=== PATIENT | female | born 1980 | race Caucasian/White ===

== ENCOUNTER 2019-04-22 18:13 | Emergency (ER) | payer MEDICAID ==
[~2019-04-22] VITALS: Ht 157.5 cm; Wt 54.5 kg
[2019-04-22 18:33] VITALS: Ht 157.5 cm; Wt 54.5 kg
[2019-04-22 21:10] VITALS: BP 120/67
== END 2019-04-22 20:54 | disposition home or self-care (01) ==
LOC: D.ER 18:13
DX: G89.18 Other acute postprocedural pain (principal); K08.89 Other specified disorders of teeth and supporting structures; Z98.818 Other dental procedure status; Z72.0 Tobacco use